=== PATIENT | male | born 1945 | race Caucasian/White ===

== ENCOUNTER 2017-04-05 06:38 | Emergency (ER) | payer BC, MEDICARE ==
[~2017-04-05] VITALS: Ht 175.3 cm; Wt 88.0 kg
[~2017-04-05 06:38] MED LIST: ATEN100T PO; BUPR-73 PO; FLUO40CA8 PO; GEMF600T3 PO; NAPR500T PO
[2017-04-05] MEDS ORDERED: IV NORMAL SALINE 1000 ML BAG IV ONE (07:15)
[2017-04-05] MEDS ORDERED: FAMOTIDINE. 20 MG/2 ML VIAL IV ONE ×2 (07:15→07:36)
[2017-04-05] MEDS ORDERED: ONDANSETRON 4 MG/2 ML VIAL IV ONE (07:15)
[2017-04-05] MEDS ORDERED: MORPHINE SULFATE 2 MG/1 ML DISP.SYRIN IV ONE (07:15)
--- NOTE | 2017-04-05 07:21 | NUR ---
Report given to Rudy Kee RN. Patient stable at time of report.
[2017-04-05 07:32] LABS: BASOPHILS % (AUTO) 0.3 % (0.0-2.0); EOSINOPHILS % (AUTO) 0.3 % (0.0-7.0); HEMATOCRIT 46.6 % (40-50); HEMOGLOBIN 16.2 G/DL (14.0-18.0); LYMPHOCYTES # (AUTO) 1.8 K/UL (0.8-4.8); LYMPHOCYTES % (AUTO) 20.8 % (20.5-51.5); MEAN CORPUSCULAR HEMOGLOBIN 30.4 UUG (27.0-31.0); MEAN CORPUSCULAR HGB CONC 35 g/dL (32.0-37.0); MEAN CORPUSCULAR VOLUME 87.5 FL (82.0-92.0); MONOCYTES # (AUTO) 0.5 K/UL (0.1-1.30); MONOCYTES % (AUTO) 5.3 % (0.0-11.0); NEUTROPHILS # (AUTO) 6.2 K/UL (1.8-8.9); NEUTROPHILS % (AUTO) 73.3 % (38.5-71.5); PLATELET COUNT (AUTO) 209 K/UL (150-450); RED BLOOD CELL COUNT(AUTO) 5.33 MIL/UL (4.7-6.1); WHITE BLOOD COUNT (AUTO) 8.5 K/UL (4.0-11.2)
[2017-04-05] MEDS ORDERED: ONDANSETRON 4 MG/2 ML VIAL ONE (07:37)
[2017-04-05] MEDS ORDERED: MORPHINE SULFATE 4 MG/1 ML DISP.SYRIN ONE (07:37)
--- NOTE | 2017-04-05 07:37 | NUR ---
dr richard evaluated the pt.
[2017-04-05 07:57] LABS: CREATININE 0.9 mg/dL (0.6-1.3); POTASSIUM 3.5 mmol/L (3.5-5.1)
[2017-04-05 08:02] LABS: BILIRUBIN,DIRECT 0.1 mg/dL (0.0-0.2); BILIRUBIN,TOTAL 0.8 mg/dL (0.2-1.0)
[2017-04-05] MEDS ORDERED: METOCLOPRAMIDE HCL 10 MG/2 ML VIAL IV ONE (08:30)
[2017-04-05] MEDS ORDERED: NORMAL SALINE FLUSH 10 ML DISP.SYRIN ONE (08:41)
[2017-04-05] MEDS ORDERED: IOHEXOL 300MG/ML 100 ML INFUS..BTL ONE (08:41)
[2017-04-05] MEDS ORDERED: IV NORMAL SALINE 250 ML IV ONE (08:41)
[2017-04-05] MEDS ORDERED: METOCLOPRAMIDE HCL 10 MG/2 ML VIAL ONE (09:07)
--- NOTE | 2017-04-05 09:32 | NUR ---
PT WAS D/C TO HOME. D/C INSTRUCTIONS GIVEN TO THE PT.
[2017-04-05 09:33] VITALS: BP 128/81
== END 2017-04-05 09:33 | disposition home or self-care (01) ==
LOC: ER 06:40
DX: R10.9 Unspecified abdominal pain (principal); R11.2 Nausea with vomiting, unspecified; R19.7 Diarrhea, unspecified
CPT/HCPCS: 36415; 74177; 80048; 80076; 83690; 85025; 93005; 96361; 96374; 96375; 99285; A4663; J2270; J2405; J2765; J3490 ×2; J7030; J7050; Q9967

== ENCOUNTER 2019-12-26 19:29 | Inpatient (IN) | payer MEDICARE, BC ==
[~2019-12-26] VITALS: Ht 182.9 cm; Wt 88.5 kg
[~2019-12-26 19:29] MED LIST changes: -GEMF600T3 PO; +GEMF600T5 PO; +NAPR-1164 PO; -NAPR500T PO
--- NOTE | 2019-12-26 19:45 | NUR ---
admitted ambulatory from home to er rm-5, c/o abd. pain. seen & evaluated pt w/ orders.
[2019-12-26] MEDS ORDERED: IV NORMAL SALINE 1000 ML BAG IV ONE (20:00)
[2019-12-26] MEDS ORDERED: PANTOPRAZOLE SODIUM 40 MG VIAL IV ONE (20:00)
[2019-12-26] MEDS ORDERED: ONDANSETRON 4 MG/2 ML VIAL IV ONE (20:00)
[2019-12-26] MEDS ORDERED: MORPHINE SULFATE 2 MG/1 ML DISP.SYRIN IV ONE (20:00)
[2019-12-26] MEDS ORDERED: PANTOPRAZOLE SODIUM 40 MG VIAL ONE (20:06)
[2019-12-26 20:07] LABS: BASOPHILS % (AUTO) 0.2 % (0.0-2.0); HEMATOCRIT 42.9 % (36.7-47.1); LYMPHOCYTES # (AUTO) 1.5 K/uL (20.0-40.0); LYMPHOCYTES % (AUTO) 12.9 % (20.5-51.5); MEAN CORPUSCULAR HEMOGLOBIN 30.9 uug (23.8-33.4); MEAN CORPUSCULAR HGB CONC 35 g/dL (32.5-36.3); MEAN CORPUSCULAR VOLUME 88.8 fL (73.0-96.2); MONOCYTES # (AUTO) 0.3 K/uL (2.0-10.0); MONOCYTES % (AUTO) 2.7 % (0.0-11.0); NEUTROPHILS # (AUTO) 9.9 K/uL (1.8-8.9); NEUTROPHILS % (AUTO) 84.2 % (38.5-71.5); PLATELET COUNT (AUTO) 199 K/uL (152-348); RED BLOOD CELL COUNT(AUTO) 4.83 MIL/uL (4.06-5.63); WHITE BLOOD COUNT (AUTO) 11.8 K/uL (3.6-10.2)
[2019-12-26] MEDS ORDERED: MORPHINE SULFATE 2 MG/1 ML DISP.SYRIN ONE ×2 (20:07→21:33)
[2019-12-26] MEDS ORDERED: ONDANSETRON 4 MG/2 ML VIAL ONE ×2 (20:07→20:08)
[2019-12-26 20:21] LABS: CREATININE 1.1 mg/dL (0.6-1.3)
[2019-12-26 20:26] LABS: BILIRUBIN,DIRECT 0.1 mg/dL (0.0-0.2); BILIRUBIN,TOTAL 0.5 mg/dL (0.2-1.0); TOTAL PROTEIN, SERUM 7.3 g/dL (6.4-8.2)
--- NOTE | 2019-12-26 20:29 | NUR ---
pt. to xray for ct scan of abd. & pelvis via wc.
[2019-12-26] MEDS ORDERED: MORPHINE SULFATE 4 MG/1 ML DISP.SYRIN IV ONE (21:15)
--- NOTE | 2019-12-26 21:15 | NUR ---
ekg done as ordered.
[2019-12-26] MEDS ORDERED: ASPIRIN 300 MG RECTAL SUPP RC ONE ×2 (21:30→21:35)
[2019-12-26] MEDS ORDERED: [UNRECOGNIZED DRUG - REMARK] PO (21:34)
[2019-12-26 21:36] LABS: *BILIRUBIN,URIN NEGATIVE (NEGATIVE); *BLOOD, URINE NEGATIVE (NEGATIVE); *CLARITY,URINE CLEAR (CLEAR); *COLOR,URINE YELLOW (YELLOW); *KETONES,URINE NEGATIVE (NEGATIVE); *UROBILINOGEN,URINE 0.2 E.U./dl (NORMAL); LEUKOCYTE ESTERASE ,URINE NEGATIVE (NEGATIVE); NITRITE, URINE NEGATIVE (NEGATIVE); PH,URINE 5.5 (5.0-8.0); UGLUCOSE NEGATIVE (NEGATIVE)
[2019-12-26] MEDS ORDERED: HYDROCODONE/APAP 5-325MG TABLET PO PRN (21:45)
[2019-12-26] MEDS ORDERED: ACETAMINOPHEN 325 MG TABLET PO PRN (21:45)
[2019-12-26] MEDS ORDERED: MAGNESIUM HYDROXIDE 30 ML LIQUID UDC PO PRN (21:45)
[2019-12-26] MEDS ORDERED: ONDANSETRON 4 MG/2 ML VIAL IV PRN (21:45)
[2019-12-26] MEDS ORDERED: Z GUARD REMEDY PASTE 57 GM TUBE TOP PRN (21:45)
[2019-12-26 21:54] LABS: BACTERIA,URINE NONE SEEN /HPF (NONE SEEN); RBC,URINE 0-3 /HPF (0-3); SQUAMOUS EPITHELIAL CELL,UR FEW /HPF (NONE SEEN); WBC,URINE 0-3 /HPF (0-3)
--- NOTE | 2019-12-26 22:30 | NUR ---
dr arambula was here, seen pt.
[2019-12-26 22:59] VITALS: BP 136/94
--- NOTE | 2019-12-26 23:00 | NUR ---
report given to renan staples.
--- NOTE | 2019-12-26 23:10 | NUR ---
pt transfered to [facility] telemetry via wheelchair.
[2019-12-26] MEDS: IV D5 1/2 NS 1000 ML 1,000 ML IV PRN (23:15)
[2019-12-26] MEDS: ZOLPIDEM 5 MG TABLET PO PRN (23:27)
--- NOTE | 2019-12-26 23:30 | NUR ---
Received patient from ER. Dx: NSTEMI, NSR on the monitor. Patient is A/Ox3. No signs of acute distress noted. Vitals WNL. Complains of abdominal pain, but wanted medication for sleeping first. Endorsed to Dr. Quinones and received orders for Ambien, administered with little water. Patient is NPO. Started IVF on the left forearm. Body assessment done. Patient oriented to room and unit. Safety measures initiated. Bed is low and locked, call light within reach. Will continue to monitor.
[2019-12-27] MEDS: MORPHINE SULFATE 2 MG/1 ML DISP.SYRIN IV PRN ×2 (03:20→08:27)
[2019-12-27 04:44] VITALS: BP 130/84
[2019-12-27 06:23] LABS: MAGNESIUM 1.9 mg/dL (1.8-2.4); POTASSIUM 3.9 mmol/L (3.5-5.1)
[2019-12-27 06:30] LABS: EOSINOPHILS % (AUTO) 0.3 % (0.0-7.0); HEMOGLOBIN 13.8 g/dL (12.5-16.3); MONOCYTES # (AUTO) 0.6 K/uL (2.0-10.0); NEUTROPHILS # (AUTO) 5.3 K/uL (1.8-8.9); NEUTROPHILS % (AUTO) 63.2 % (38.5-71.5)
[2019-12-27 06:33] LABS: THYROID STIMULATING HORMONE 1.008 mIU/mL (0.358-3.740)
[2019-12-27 06:49] LABS: BASOPHILS % (AUTO) 0.3 % (0.0-2.0); HEMATOCRIT 39.8 % (36.7-47.1); LYMPHOCYTES # (AUTO) 2.4 K/uL (20.0-40.0); LYMPHOCYTES % (AUTO) 28.9 % (20.5-51.5); MEAN CORPUSCULAR HEMOGLOBIN 31.2 uug (23.8-33.4); MEAN CORPUSCULAR HGB CONC 35 g/dL (32.5-36.3); MEAN CORPUSCULAR VOLUME 89.7 fL (73.0-96.2); MONOCYTES % (AUTO) 7.3 % (0.0-11.0); PLATELET COUNT (AUTO) 182 K/uL (152-348); RED BLOOD CELL COUNT(AUTO) 4.44 MIL/uL (4.06-5.63)
[2019-12-27 06:51] LABS: WHITE BLOOD COUNT (AUTO) 8.4 K/uL (3.6-10.2)
[2019-12-27] MEDS: HEPARIN SODIUM,PORCINE 5,000 UNITS/ML VIAL SQ SCH ×2 (08:29→21:04)
[2019-12-27] MEDS: ASPIRIN EC 81 MG TABLET.DR PO SCH (08:36)
[2019-12-27] MEDS: ATENOLOL 50 MG TABLET PO SCH (08:36)
--- NOTE | 2019-12-27 08:44 | NUR ---
RECEIVED PATIENT, WITH NO SOB NOTED AT THIS TIME AND NO C/O PAIN AT THIS TIME. PATIENT IS NPO . WITH IV ON LEFT FOREARM # 20 GAUGE WITH D5 1/2 NS RUNNING 75 ML/HR. KEPT CLEAN AND DRY AT TALL TIMES. PATIENT IS ALERT AND ORIENTED X3 AND ABLE TO MAKE NEEDS KNOWN. SAFETY AND COMFORT PROVIDED TO THE PATIENT . WILL CONTINUE TO MONITOR.
[2019-12-27] MEDS ORDERED: ALPRAZOLAM 0.5 MG TABLET PO ONE (11:30)
[2019-12-27 11:42] VITALS: BP 128/106
[2019-12-27] MEDS: IV D5 1/2 NS 1000 ML 1,000 ML IV PRN (12:59)
[2019-12-27] MEDS: FLUOXETINE HCL 20 MG CAPSULE PO SCH (13:01)
[2019-12-27 15:30] VITALS: BP 125/59
--- NOTE | 2019-12-27 18:09 | NUR ---
PATIENT, WITH NO SOB NOTED AT THIS TIME AND NO C/O PAIN AT THIS TIME. PATIENT IS BRP. PATIENT IS ON 2GMNA DIET . WITH IV ON LEFT FOREARM # 20 GAUGE WITH D5 1/2 NS RUNNING 75 ML/HR. KEPT CLEAN AND DRY AT TALL TIMES. PATIENT IS ALERT AND ORIENTED X3 AND ABLE TO MAKE NEEDS KNOWN. SAFETY AND COMFORT PROVIDED TO THE PATIENT . WILL CONTINUE TO MONITOR.
--- NOTE | 2019-12-27 18:30 | NUR ---
DR. Mcgregor called and will put for MRI in the AM
--- NOTE | 2019-12-27 19:30 | NUR ---
Received patient resting in bed, easily to arouse. A/Ox3. No signs of acute distress noted. No complaints of pain or SOB. Vitals WNL. Says stomach is feeling better today. Requesting sleeping medication, explained that medication cant be given until 9pm and patient verbalized understanding. 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 Mcgregor is an oncologist on his case and ordered an MRI. Patient is agreeable for MRI and will sign consent. Safety measures initiated Bed is low and locked, call light within reach. Will continue to monitor.
[2019-12-27 20:00] VITALS: BP 151/81
[2019-12-27] MEDS ORDERED: ATORVASTATIN 20 MG TABLET PO SCH (21:00)
[2019-12-27] MEDS: ZOLPIDEM 5 MG TABLET PO PRN (21:03)
[2019-12-28] VITALS: BP 147/61
[2019-12-28] MEDS: IV D5 1/2 NS 1000 ML 1,000 ML IV PRN (01:44)
[2019-12-28] MEDS: MORPHINE SULFATE 2 MG/1 ML DISP.SYRIN IV PRN (03:14)
[2019-12-28 04:00] VITALS: BP 157/70
[2019-12-28 06:11] LABS: BASOPHILS % (AUTO) 0.5 % (0.0-2.0); EOSINOPHILS % (AUTO) 0.3 % (0.0-7.0); HEMATOCRIT 39.6 % (36.7-47.1); HEMOGLOBIN 13.9 g/dL (12.5-16.3); LYMPHOCYTES # (AUTO) 2.3 K/uL (20.0-40.0); LYMPHOCYTES % (AUTO) 31.9 % (20.5-51.5); MEAN CORPUSCULAR HEMOGLOBIN 31.4 uug (23.8-33.4); MEAN CORPUSCULAR HGB CONC 35 g/dL (32.5-36.3); MEAN CORPUSCULAR VOLUME 89.4 fL (73.0-96.2); MONOCYTES # (AUTO) 0.4 K/uL (2.0-10.0); MONOCYTES % (AUTO) 5.9 % (0.0-11.0); NEUTROPHILS # (AUTO) 4.3 K/uL (1.8-8.9); NEUTROPHILS % (AUTO) 61.4 % (38.5-71.5); PLATELET COUNT (AUTO) 167 K/uL (152-348); RED BLOOD CELL COUNT(AUTO) 4.43 MIL/uL (4.06-5.63); WHITE BLOOD COUNT (AUTO) 7.1 K/uL (3.6-10.2)
[2019-12-28 06:13] LABS: CREATININE 0.9 mg/dL (0.6-1.3); MAGNESIUM 1.8 mg/dL (1.8-2.4); PHOSPHOROUS 3.3 mg/dL (2.5-4.9); POTASSIUM 3.4 mmol/L (3.5-5.1)
[2019-12-28] MEDS: POTASSIUM CHLORIDE 50 ML IV SCH ×2 (09:30→09:40)
[2019-12-28] MEDS: ATENOLOL 50 MG TABLET PO SCH (09:41)
[2019-12-28] MEDS: FLUOXETINE HCL 20 MG CAPSULE PO SCH (09:41)
[2019-12-28] MEDS: HEPARIN SODIUM,PORCINE 5,000 UNITS/ML VIAL SQ SCH (10:03)
[2019-12-28] MEDS: ASPIRIN EC 81 MG TABLET.DR PO SCH (10:03)
[2019-12-28] MEDS ORDERED: LORAZEPAM 1 MG TABLET PO ONE (11:15)
[2019-12-28 11:16] VITALS: BP 151/70
--- NOTE | 2019-12-28 11:40 | NUR ---
pt went for mri via ambulances to [facility]
--- NOTE | 2019-12-28 13:44 | NUR ---
pt came back from mri in stable condition
[2019-12-28 15:15] VITALS: BP 135/61
--- NOTE | 2019-12-28 16:14 | NUR ---
took over care from am nurse, pt resting, denies of pain, states going home today, informed that will do discharge papers
--- NOTE | 2019-12-28 17:00 | NUR ---
discharge instructions given- verbalized understanding, iv removed- site without redness/swelling noted, a friend will be picking him up
[2019-12-28] MEDS ORDERED: GADOTERIDOL 279.3 MG/ML, 15 ML VIAL MC ONE (17:34)
--- NOTE | 2019-12-28 17:35 | NUR ---
escorted to car with all belongings under friend's care- pt in stable condition, no distress noted
== END 2019-12-28 17:35 | disposition home or self-care (01) | DRG 391 ==
LOC: ER 19:31 → TELE3 22:18
PROVIDERS: ADMIT Student in an Organized Health Care Education/Training Program; ATTEND Nurse Practitioner Acute Care
DX: A08.4 Viral intestinal infection, unspecified (principal); I21.A1 Myocardial infarction type 2; K86.2 Cyst of pancreas; I42.2 Other hypertrophic cardiomyopathy; E78.5 Hyperlipidemia, unspecified; E86.0 Dehydration; F32.9 Major depressive disorder, single episode, unspecified; F41.9 Anxiety disorder, unspecified; I10 Essential (primary) hypertension; I25.10 Atherosclerotic heart disease of native coronary artery without angina pectoris; K57.30 Diverticulosis of large intestine without perforation or abscess without bleeding
CPT/HCPCS: 36415; 70030-TC; 71045; 83690; 83735; 84100; 84443; 85025; 85730; 86301; 93005; 93307; A4663; A9579; C9113; G0378; J1644; J2270; J2405; J3480; J3490; J7030

== ENCOUNTER 2020-02-05 08:53 | Inpatient (IN) | payer MEDICARE, BC ==
[~2020-02-05] VITALS: Ht 175.3 cm; Wt 86.2 kg
[~2020-02-05 08:53] MED LIST changes: -BUPR-73 PO; -GEMF600T5 PO; -NAPR-1164 PO; +[UNRECOGNIZED DRUG - REMARK] PO
--- NOTE | 2020-02-05 09:18 | NUR ---
pt requesting demerol for pain management.
[2020-02-05] MEDS ORDERED: ONDANSETRON 4 MG/2 ML VIAL ONE (09:29)
[2020-02-05] MEDS ORDERED: HYDROMORPHONE 1 MG/1 ML DISP.SYRIN IV ONE ×2 (09:30→12:15)
[2020-02-05] MEDS ORDERED: ONDANSETRON 4 MG/2 ML VIAL IV ONE (09:30)
[2020-02-05] MEDS ORDERED: IV NORMAL SALINE 1000 ML BAG IV ONE (09:30)
[2020-02-05] MEDS ORDERED: FAMOTIDINE. 20 MG/2 ML VIAL IV ONE ×2 (09:30→09:33)
[2020-02-05] MEDS ORDERED: HYDROMORPHONE 1 MG/1 ML DISP.SYRIN ONE ×2 (09:33→12:17)
[2020-02-05 09:51] LABS: BASOPHILS # (AUTO) 0.1 K/uL (0.0-8.0); BASOPHILS % (AUTO) 0.5 % (0.0-2.0); EOSINOPHILS % (AUTO) 0.1 % (0.0-7.0); HEMOGLOBIN 15.7 g/dL (12.5-16.3); LYMPHOCYTES % (AUTO) 19.6 % (20.5-51.5); MEAN CORPUSCULAR HEMOGLOBIN 31.3 uug (23.8-33.4); MEAN CORPUSCULAR HGB CONC 35 g/dL (32.5-36.3); MEAN CORPUSCULAR VOLUME 89.8 fL (73.0-96.2); MONOCYTES # (AUTO) 0.5 K/uL (2.0-10.0); MONOCYTES % (AUTO) 4.4 % (0.0-11.0); NEUTROPHILS # (AUTO) 7.8 K/uL (1.8-8.9); NEUTROPHILS % (AUTO) 75.4 % (38.5-71.5); PLATELET COUNT (AUTO) 217 K/uL (152-348); RED BLOOD CELL COUNT(AUTO) 5.01 MIL/uL (4.06-5.63); WHITE BLOOD COUNT (AUTO) 10.4 K/uL (3.6-10.2)
[2020-02-05 09:52] LABS: CREATININE 1.1 mg/dL (0.6-1.3); POTASSIUM 3.7 mmol/L (3.5-5.1)
[2020-02-05 09:57] LABS: BILIRUBIN,DIRECT 0.2 mg/dL (0.0-0.2); TOTAL PROTEIN, SERUM 7.5 g/dL (6.4-8.2)
[2020-02-05 10:22] LABS: *BILIRUBIN,URIN NEGATIVE (NEGATIVE); *BLOOD, URINE NEGATIVE (NEGATIVE); *CLARITY,URINE CLEAR (CLEAR); *COLOR,URINE DARK YELLOW (YELLOW); *KETONES,URINE NEGATIVE (NEGATIVE); PH,URINE 6.5 (5.0-8.0); UGLUCOSE NEGATIVE (NEGATIVE)
[2020-02-05 10:23] LABS: *UROBILINOGEN,URINE 0.2 E.U./dl (NORMAL); LEUKOCYTE ESTERASE ,URINE NEGATIVE (NEGATIVE); NITRITE, URINE NEGATIVE (NEGATIVE)
[2020-02-05] MEDS ORDERED: ASPIRIN 81 MG TAB.CHEW PO ONE (10:45)
[2020-02-05] MEDS ORDERED: MIRT15TA7 PO (10:45)
[2020-02-05] MEDS ORDERED: [UNRECOGNIZED DRUG - OTHER] PO (10:45)
[2020-02-05] MEDS ORDERED: ATEN50TA PO (10:45)
[2020-02-05] MEDS ORDERED: ASPIRIN 81 MG TAB.CHEW ONE (10:50)
--- NOTE | 2020-02-05 12:57 | NUR ---
pt transfered to floor in stable condition. pt remained calm, watching tv during the er stay. pain down to tolerable level.
[2020-02-05] MEDS ORDERED: MAGNESIUM HYDROXIDE 30 ML LIQUID UDC PO PRN (13:00)
--- NOTE | 2020-02-05 13:16 | NUR ---
admitted in room 302 a 74 yo male with adm diagnosis of non-stemi, awake alert and oriented x3, patient wanted ativen right away upon admission on the floor. patient per ER nurse was given 1.5 mg. routine admission assessment initiated. md notified of admission
[2020-02-05] MEDS: IV NS 1000 ML 1,000 ML IV PRN ×2 (13:26→23:59)
[2020-02-05 13:44] VITALS: BP 108/52
[2020-02-05] MEDS ORDERED: ALPRAZOLAM 0.5 MG TABLET PO PRN (15:30)
[2020-02-05 15:51] VITALS: BP 120/40
--- NOTE | 2020-02-05 19:00 | NUR ---
PATIENT ALERT ORIENTED, NO SOB NO CHEST PAIN. PATIENT TELE MONITOR SINUS RHYTHM SINUS JOE. PATIENT CONTINENT OF BOWEL AND BLADDER, NO COMPLAIN OF PAIN AT THIS TIME, USES RESTROOM FOR BLADDER ELIMINATIONS.
--- NOTE | 2020-02-05 19:30 | NUR ---
PATIENT REFUSED OXYGEN 3LPM STATED "HE'S FLORENCIO", OXYGEN SAT 98% ROOM AIR, CONT TO MONITOR,
[2020-02-05 20:22] VITALS: BP 136/67
[2020-02-05] MEDS: MIRTAZAPINE 15 MG TABLET PO SCH (20:38)
--- NOTE | 2020-02-05 20:44 | NUR ---
MEDICATIONS TENORMIN HELD HR 59.
[2020-02-05] MEDS ORDERED: ATENOLOL 50 MG TABLET PO SCH (21:00)
[2020-02-06 00:31] VITALS: BP 115/60
[2020-02-06] MEDS: HYDROMORPHONE 1 MG/1 ML DISP.SYRIN IV PRN ×2 (03:55→17:14)
[2020-02-06] MEDS: ONDANSETRON 4 MG/2 ML VIAL IV PRN ×2 (04:53→20:36)
--- NOTE | 2020-02-06 05:09 | NUR ---
PATIENT IV LEFT FA INFILTRATED, REINSERT RIGHT HAND TOLERATE WELL.
--- NOTE | 2020-02-06 05:10 | NUR ---
PATIENT COMPLAIN OF NAUSEA BUT NO VOMITING, GIVEN ZOFRAN ORDERED. CONT TO MONITOR.
[2020-02-06 06:00] VITALS: BP 188/68
[2020-02-06] MEDS: PANTOPRAZOLE SODIUM 40 MG VIAL IV SCH (06:10)
[2020-02-06 06:21] LABS: BASOPHILS % (AUTO) 0.5 % (0.0-2.0); EOSINOPHILS # (AUTO) 0.1 K/uL (0.0-0.7); EOSINOPHILS % (AUTO) 0.6 % (0.0-7.0); HEMOGLOBIN 14.6 g/dL (12.5-16.3); LYMPHOCYTES # (AUTO) 2.6 K/uL (20.0-40.0); LYMPHOCYTES % (AUTO) 25.5 % (20.5-51.5); MEAN CORPUSCULAR HEMOGLOBIN 31.2 uug (23.8-33.4); MEAN CORPUSCULAR HGB CONC 35 g/dL (32.5-36.3); MONOCYTES # (AUTO) 0.6 K/uL (2.0-10.0); MONOCYTES % (AUTO) 5.5 % (0.0-11.0); NEUTROPHILS # (AUTO) 6.9 K/uL (1.8-8.9); NEUTROPHILS % (AUTO) 67.9 % (38.5-71.5); PLATELET COUNT (AUTO) 197 K/uL (152-348); RED BLOOD CELL COUNT(AUTO) 4.67 MIL/uL (4.06-5.63); WHITE BLOOD COUNT (AUTO) 10.1 K/uL (3.6-10.2)
--- NOTE | 2020-02-06 06:37 | NUR ---
PATIENT REQUEST TO HAVE THE PROTONIX MEDICATIONS EARLY BECAUSE HE SAID IT HELPS HIS ABDOMINAL PAIN. INSTRUCTED PATIENT TO STOP DRINKING FOR NOW, AND HE TO REST HIS ABDOMEN AT THIS TIME. CONT TO MONITOR.
[2020-02-06 06:40] LABS: BILIRUBIN,TOTAL 1.2 mg/dL (0.2-1.0); MAGNESIUM 1.8 mg/dL (1.8-2.4); PHOSPHOROUS 3.3 mg/dL (2.5-4.9); POTASSIUM 3.3 mmol/L (3.5-5.1); TOTAL PROTEIN, SERUM 6.5 g/dL (6.4-8.2)
[2020-02-06 07:26] VITALS: BP 195/74
--- NOTE | 2020-02-06 07:27 | NUR ---
PATIENT HAS ELEVATED BP 188/68, 195/74. ALLEY SPINNING FRAME CHANGER AT THE STATION NOTIFY HIM THE ELEVATED BP, STATED FLORENCIO I WILL TAKE CARE OF IT. ALLEY AWARE OF ELEVATED TROPONIN. ENDORSED TO NEXT SHIFT.
[2020-02-06] MEDS ORDERED: POTASSIUM CHLORIDE 20 MEQ TAB.PRT.SR PO ONE (07:30)
[2020-02-06] MEDS ORDERED: CLONIDINE HCL 0.1 MG TABLET PO PRN (08:00)
--- NOTE | 2020-02-06 08:00 | NUR ---
RECEIVED PATIENT IN BED AWAKE ALERT AND ORIENTED WITH IVF ORDERED DENIES PAIN OR DISCOMFORTS AT THIS TIME ON ROOM AIR WITH NO SHORTNESS OF BREATH CALL LIGHTS AND PERSONAL BELONGINGS ARE WITHIN EASY REACH AT THIS TIME WILL CONTINUE TO OBSERVE.
[2020-02-06] MEDS: ALPRAZOLAM 0.5 MG TABLET PO PRN ×2 (08:28→22:01)
--- NOTE | 2020-02-06 08:28 | NUR ---
PATIENT STATED FEEL VERY ANXIOUS MEDICATED WITH XANAX ORDERED MADE COMFORTABLE WILL CONTINUE TO OBSERVE.
[2020-02-06] MEDS ORDERED: POTASSIUM CHLORIDE 20 MEQ POWDER PACKET PO ONE (10:15)
--- NOTE | 2020-02-06 11:00 | NUR ---
IV SITE INFILTERATED REINSERTED TO HIS RIGHT HAND WITH TWO ATTEMPTS CONTINUED ON IVF ORDERED.
[2020-02-06 11:30] VITALS: BP 110/55
[2020-02-06] MEDS: ASPIRIN 81 MG TAB.CHEW PO SCH (12:22)
[2020-02-06] MEDS: METOPROLOL TARTRATE 50 MG TABLET PO SCH ×2 (12:23→20:35)
--- NOTE | 2020-02-06 13:00 | NUR ---
POTASSIUM LEVEL IS 3.3 REPLACED ORDERED.
[2020-02-06] MEDS: IV NS 1000 ML 1,000 ML IV PRN (15:05)
[2020-02-06 16:00] VITALS: BP 116/54
--- NOTE | 2020-02-06 17:14 | NUR ---
PATIENT C/O HAVING ABDOMINAL PAIN MEDICATED WITH DILAUDID ORDERED MADE COMFORTABLE WILL CONTINUE TO OBSERVE.
--- NOTE | 2020-02-06 19:30 | NUR ---
RECEIVED PT AWAKE , ALERT AND ORIENTEDX4. PT IN NO ACUTE DISTRESS. IV INTACT. SAFETY AND COMFORT PROVIDED. WILL CONTINUE TO MONITOR.
[2020-02-06] MEDS: MIRTAZAPINE 15 MG TABLET PO SCH (20:36)
[2020-02-06 20:37] VITALS: BP 115/67
--- NOTE | 2020-02-06 23:30 | NUR ---
PT GIVEN ZOFRAN PRN FOR NAUSEA AT 2036H. PT TOLERATED IT WELL. PT GIVEN XANAX AT 2201H PRESCRIBED PER PT REQUEST. HE STATED IT WILL MAKE HIM SLEEP. PT TOLERATED IT WELL. OBSERVED THAT PT SLEEPING AFTER AN HOUR. WILL CONTINUE TO MONITOR.
[2020-02-07] VITALS: BP 122/54
[2020-02-07] MEDS: IV NS 1000 ML 1,000 ML IV PRN (01:06)
[2020-02-07 04:00] VITALS: BP 125/68
[2020-02-07 05:56] LABS: BASOPHILS # (AUTO) 0.1 K/uL (0.0-8.0); BASOPHILS % (AUTO) 0.7 % (0.0-2.0); EOSINOPHILS # (AUTO) 0.1 K/uL (0.0-0.7); EOSINOPHILS % (AUTO) 1.1 % (0.0-7.0); HEMATOCRIT 43.4 % (36.7-47.1); HEMOGLOBIN 15.1 g/dL (12.5-16.3); LYMPHOCYTES # (AUTO) 3.5 K/uL (20.0-40.0); LYMPHOCYTES % (AUTO) 31.6 % (20.5-51.5); MEAN CORPUSCULAR HEMOGLOBIN 31.2 uug (23.8-33.4); MEAN CORPUSCULAR HGB CONC 35 g/dL (32.5-36.3); MEAN CORPUSCULAR VOLUME 89.6 fL (73.0-96.2); MONOCYTES # (AUTO) 0.7 K/uL (2.0-10.0); MONOCYTES % (AUTO) 6.7 % (0.0-11.0); NEUTROPHILS # (AUTO) 6.7 K/uL (1.8-8.9); NEUTROPHILS % (AUTO) 59.9 % (38.5-71.5); PLATELET COUNT (AUTO) 206 K/uL (152-348); RED BLOOD CELL COUNT(AUTO) 4.84 MIL/uL (4.06-5.63); WHITE BLOOD COUNT (AUTO) 11.1 K/uL (3.6-10.2)
[2020-02-07 06:02] LABS: CREATININE 1.1 mg/dL (0.6-1.3); POTASSIUM 3.8 mmol/L (3.5-5.1)
--- NOTE | 2020-02-07 06:11 | NUR ---
PT SLEPT COMFORTABLY. PT IN NO ACUTE DISTRESS. PRESCRIBED MEDICATION GIVEN AND PT TOLERATED IT WELL. PAIN MEDICATION GIVEN FOR 7/10 PAIN SCALE. PT TOLERATED IT WELL. SAFETY AND COMFORT PROVIDED. ALL NEEDS ARE MET. WILL ENDORSE TO INCOMING NURSE FOR CONTINUITY OF CARE.
[2020-02-07] MEDS: HYDROMORPHONE 1 MG/1 ML DISP.SYRIN IV PRN (06:23)
--- NOTE | 2020-02-07 08:00 | NUR ---
RECEIVED PATIENT IN BED AWAKE AND ALERT WITH NO SIGNS AND SYMPTOMS OF RESPIRATORY DISTRESS. NO COMPLAINT OF PAIN WILL ASSESS AGAIN LATER. PATIENT ON ROOM AIR AND IS SATURATING WELL. WILL CONTINUE TO OBSERVE AND MONITOR
[2020-02-07] MEDS: PANTOPRAZOLE SODIUM 40 MG VIAL IV SCH (08:21)
[2020-02-07] MEDS: METOPROLOL TARTRATE 50 MG TABLET PO SCH (08:25)
[2020-02-07] MEDS: ASPIRIN 81 MG TAB.CHEW PO SCH (08:26)
--- NOTE | 2020-02-07 11:04 | NUR ---
PATIENT SEEN AND EXAMINED BY DR ROSANNA WHITE STATED THAT HE IS PLANNING TO DISCHARGE PATIENT HOME TODAY AND NOTED AWAITING FOR ORDERS.
[2020-02-07] MEDS ORDERED: ASPI81TA31 PO (11:37)
[2020-02-07 12:00] VITALS: BP 127/79
--- NOTE | 2020-02-07 12:20 | NUR ---
BLOOD PRESSURE AT THIS TIME IS 167/[address] ROSANNA WHITE NOTIFIED STATED OKAY TO DISCHARGE PATIENT HOME TODAY NO NEW ORDERS AT THIS TIME PATIENT IS ASSYMPTOMATIC EATING HIS LUNCH AND EXCITED TO BE GOINH HOME.
[2020-02-07] MEDS ORDERED: METO50TA16 PO (12:27)
--- NOTE | 2020-02-07 12:53 | NUR ---
DISCHARGE INSTRUCTIONS AND MEDICAL CD GIVEN TO PATIENT. PATIENT WAS INSTRUCTED TO CALL FOR FOLLOWUP APPT WITH DOCTOR MANZANO THIS WEEK PHONE NUMBER PROVIDED. ALSO PATIENT WAS INSTRUCTED TO FOLLOW UP WITH HIS PRIMARY DOCTOR AND TYPEWRITER MECHANIC FOR OUTPATIENT STRESS TEST. ALSO TO RETURN TO THE CLOSEST EMERGENCY ROOM FOR CHEST PAIN, ABDOMINAL PAIN OR WORSENING OF HIS CONDITION. PATIENT EXPRESSED UNDERSTANDING. PATIENT IS CURRENTLY AWAITING FOR HIS SON ISAAC TO PICK HIM UP.
--- NOTE | 2020-02-07 14:00 | NUR ---
PATIENTS SON ISAAC HERE AND PATIENT ESCORTED DOWN WITH ALL OF HIS PERSONAL BELONGINGS DISCHARGED IN SATISFACTORY CONDITION.
[2020-02-08] MEDS ORDERED: PANTOPRAZOLE SODIUM 40 MG TABLET.DR PO SCH (07:00)
== END 2020-02-07 14:00 | disposition home or self-care (01) | DRG 438 ==
LOC: ER 08:53 → TELE3 12:31 → MEDSURG3 02-07 08:35
PROVIDERS: ADMIT Nurse Practitioner Acute Care; ATTEND Hospitalist
DX: K85.90 Acute pancreatitis without necrosis or infection, unspecified (principal); I21.4 Non-ST elevation (NSTEMI) myocardial infarction; I42.2 Other hypertrophic cardiomyopathy; K86.2 Cyst of pancreas; F32.9 Major depressive disorder, single episode, unspecified; F41.9 Anxiety disorder, unspecified; G89.29 Other chronic pain; I10 Essential (primary) hypertension; Z85.46 Personal history of malignant neoplasm of prostate; R73.9 Hyperglycemia, unspecified; D72.829 Elevated white blood cell count, unspecified; Z79.891 Long term (current) use of opiate analgesic; R01.1 Cardiac murmur, unspecified; E78.5 Hyperlipidemia, unspecified; N20.0 Calculus of kidney
CPT/HCPCS: 36415; 70030-TC; 71046; 83690; 83735; 84100; 85025; 93005; A4663; C9113; G0378; J1170; J2405; J3490; J7030

== ENCOUNTER 2022-02-01 15:10 | Inpatient (IN) | payer MEDICARE, BC ==
[~2022-02-01] VITALS: Ht 175.3 cm; Wt 74.8 kg
[~2022-02-01 15:10] MED LIST changes: +ASPI81TA31 PO; -ATEN100T PO; -FLUO40CA8 PO; +METO50TA16 PO; +MIRT-93 PO; -[UNRECOGNIZED DRUG - REMARK] PO
[2022-02-01] MEDS ORDERED: FLUO20CA42 PO (15:30)
[2022-02-01] MEDS ORDERED: DIAZ10TA4 PO (15:30)
[2022-02-01] MEDS ORDERED: TELM40TA8 PO (15:30)
[2022-02-01] MEDS ORDERED: ATOR80TA PO (15:30)
[2022-02-01] MEDS ORDERED: KETOROLAC TROMETHAMINE 15 MG INJ IVP ONE (15:45)
[2022-02-01] MEDS ORDERED: METOCLOPRAMIDE HCL 10 MG/2 ML VIAL IV ONE (15:45)
[2022-02-01] MEDS ORDERED: IV NORMAL SALINE 1000 ML BAG IV ONE (15:45)
[2022-02-01] MEDS ORDERED: KETOROLAC TROMETHAMINE 15 MG INJ ONE (15:56)
[2022-02-01] MEDS ORDERED: METOCLOPRAMIDE HCL 10 MG/2 ML VIAL ONE (15:56)
[2022-02-01 16:13] LABS: HEMATOCRIT 42.6 % (36.7-47.1); MEAN CORPUSCULAR HEMOGLOBIN 29.5 uug (23.8-33.4); MEAN CORPUSCULAR VOLUME 85.6 fL (73.0-96.2); PLATELET COUNT (AUTO) 243 K/uL (152-348)
[2022-02-01 16:16] LABS: CARBON DIOXIDE 23 mmol/L (21-32); CHLORIDE 100 mmol/L (98-107); CREATININE 0.8 mg/dL (0.6-1.3); GLUCOSE 164 mg/dL (74-106); POTASSIUM 3.4 mmol/L (3.5-5.1); UREA NITROGEN, BLOOD 10 mg/dL (7-18)
[2022-02-01 16:24] LABS: ALANINE AMINOTRANSFERASE 11 U/L (16-63); ALKALINE PHOSPHATASE 87 U/L (50-136); ASPARTATE AMINOTRANSFERASE 9 U/L (15-37); BILIRUBIN,DIRECT 0.1 mg/dL (0.0-0.2); BILIRUBIN,TOTAL 0.8 mg/dL (0.2-1.0); LIPASE 91 U/L (73-393); TOTAL PROTEIN, SERUM 6.7 g/dL (6.4-8.2)
--- NOTE | 2022-02-01 17:17 | NUR ---
Spoke with Leobardo, pt will be in 317 telemetry.
--- NOTE | 2022-02-01 17:35 | NUR ---
SON: Gaurav [phone]
--- NOTE | 2022-02-01 17:40 | NUR ---
Dr. Tai [facility].
[2022-02-01] MEDS ORDERED: NITROGLYCERIN OINT 1 GM PACKET TP ONE ×2 (18:36→18:45)
[2022-02-01] MEDS ORDERED: ASPIRIN 81 MG TAB.CHEW ONE (18:36)
[2022-02-01] MEDS ORDERED: ASPIRIN 81 MG TAB.CHEW PO ONE (18:45)
[2022-02-01] MEDS ORDERED: PIPERACILLIN SODIUM/TAZOBACTAM 3.375 G in IV DEXTROSE 5% 50 ML IV ONE (18:45)
[2022-02-01] MEDS ORDERED: PIPERACILLIN/TAZOBACTAM/D5W 50 ML IV ONE (18:49)
[2022-02-01] MEDS ORDERED: HYDROMORPHONE 1 MG/1 ML DISP.SYRIN IV ONE (19:30)
[2022-02-01] MEDS ORDERED: HYDROMORPHONE 1 MG/1 ML DISP.SYRIN ONE (19:32)
--- NOTE | 2022-02-01 19:50 | NUR ---
spoke with Joanne LOZANO report given. Pt will go to room 317.
--- NOTE | 2022-02-01 20:13 | NUR ---
Admitted 76 y/o male to tele at 2012. Awake and alert x3. Able to make needs known. NKA. 99% on room air. SR on tele. Ambulatory with cane and minimal assistance. Admitted for NSTEMI. Complaint of abdominal pain and swelling. Abdomen noted with distension. Last bowel movement 02/[address] of abdomen showed possible diverticulosis. Zosyn given IV on right AC. Skin intact. Son Kartik at bedside. Doctor aware of elevated troponin level.
--- NOTE | 2022-02-01 20:19 | NUR ---
pt transported to room [facility] via [facility] with all belongings. Pt's son accompained the pt to his room. BLAKE Rubio in room to accept the pt. Pt walked with steady gait from [facility] to his room of 317 he did use his cane.
[2022-02-01 20:26] VITALS: BP 132/61
[2022-02-01] MEDS ORDERED: MAGNESIUM HYDROXIDE 30 ML LIQUID UDC PO PRN (21:15)
[2022-02-01] MEDS ORDERED: REMEDY ESSENTIAL ZINC PASTE 113 GM TP PRN (21:15)
[2022-02-01] MEDS ORDERED: ACETAMINOPHEN 325 MG TABLET PO PRN (21:15)
[2022-02-01] MEDS ORDERED: PIPERACILLIN SODIUM/TAZOBACTAM 4.5 G in IV DEXTROSE 5% 50 ML IV SCH (22:00)
[2022-02-02 00:18] VITALS: BP 128/67
[2022-02-02] MEDS ORDERED: PIPERACILLIN/TAZO 4.5 GM VIAL IV ONE (00:19)
[2022-02-02] MEDS: PIPERACILLIN SODIUM/TAZOBACTAM 4.5 G in IV DEXTROSE 5% 50 ML IV SCH ×2 (00:38→05:17)
[2022-02-02 04:15] VITALS: BP 119/49
[2022-02-02] MEDS: ONDANSETRON 4 MG/2 ML VIAL IV PRN (05:16)
[2022-02-02] MEDS: PANTOPRAZOLE SODIUM 40 MG TABLET.DR PO SCH (06:07)
[2022-02-02] MEDS: HYDROCODONE/APAP 5-325MG TABLET PO PRN (06:07)
[2022-02-02 07:01] LABS: HEMATOCRIT 38.5 % (36.7-47.1); MEAN CORPUSCULAR HEMOGLOBIN 29.7 uug (23.8-33.4); MEAN CORPUSCULAR VOLUME 85.6 fL (73.0-96.2); PLATELET COUNT (AUTO) 192 K/uL (152-348)
[2022-02-02 07:25] LABS: CREATININE 0.7 mg/dL (0.6-1.3); MAGNESIUM 1.9 mg/dL (1.8-2.4); PHOSPHOROUS 3.2 mg/dL (2.5-4.9); POTASSIUM 3.2 mmol/L (3.5-5.1)
[2022-02-02 07:29] LABS: THYROID STIMULATING HORMONE 1.166 mIU/mL (0.358-3.740)
[2022-02-02 08:46] VITALS: BP 125/54
[2022-02-02] MEDS: ASPIRIN 81 MG TAB.CHEW PO SCH (08:50)
[2022-02-02] MEDS: FLUOXETINE HCL 20 MG CAPSULE PO SCH (08:51)
[2022-02-02] MEDS: METOPROLOL TARTRATE 50 MG TABLET PO SCH ×2 (08:51→22:09)
[2022-02-02] MEDS: LOSARTAN POTASSIUM 50 MG TABLET PO SCH (08:51)
[2022-02-02] MEDS: MORPHINE SULFATE 2 MG/1 ML DISP.SYRIN IV PRN ×4 (09:05→22:08)
[2022-02-02] MEDS ORDERED: POTASSIUM CHLORIDE 20 MEQ TAB.PRT.SR PO ONE (09:15)
--- NOTE | 2022-02-02 12:00 | NUR ---
Per ultrasound, patient does not have sufficient fluid for paracentesis. made aware.
[2022-02-02] MEDS: PIPERACILLIN SODIUM/TAZOBACTAM 3.375 G in IV DEXTROSE 5% 100 ML IV SCH ×2 (14:39→22:08)
[2022-02-02 16:26] VITALS: BP 116/62
--- NOTE | 2022-02-02 18:40 | NUR ---
patient is AAOx Addendum: 02/02/22 at 1843 by JOSE PAL RN Patient is alert and oriented x4, with episodes of forgetfulness. Denies any chest pain, no SOB noted. Still continues to c/o pain to ABD, ABD is distended, slightly soft, non tender. No nausea or diarrhea this shift. Morphine provided as requested for severe pain. All needs attended, update on health status provided to Kartik rea. Call light within reach.
[2022-02-02 20:49] VITALS: BP 119/57
[2022-02-02] MEDS: ATORVASTATIN 40 MG TABLET PO SCH (22:09)
[2022-02-03] MEDS: HYDROCODONE/APAP 5-325MG TABLET PO PRN ×2 (00:07→17:55)
[2022-02-03 00:47] VITALS: BP 141/57
[2022-02-03 04:52] VITALS: BP 139/48
[2022-02-03] MEDS: PIPERACILLIN SODIUM/TAZOBACTAM 3.375 G in IV DEXTROSE 5% 100 ML IV SCH ×3 (05:56→21:10)
[2022-02-03] MEDS: ONDANSETRON 4 MG/2 ML VIAL IV PRN ×2 (05:56→15:27)
[2022-02-03] MEDS: PANTOPRAZOLE SODIUM 40 MG TABLET.DR PO SCH (05:57)
[2022-02-03] MEDS: MORPHINE SULFATE 2 MG/1 ML DISP.SYRIN IV PRN ×3 (05:57→21:20)
[2022-02-03 06:32] LABS: CREATININE 0.8 mg/dL (0.6-1.3); POTASSIUM 3.9 mmol/L (3.5-5.1)
--- NOTE | 2022-02-03 06:53 | NUR ---
Pt received several doses of pain medications (morphine x2 & hydrocodone x1) and antinausea medication (zofran x 2) throughtout hotel night auditor. Otherwise night was uneventful. Pt maintained normal sinus rhythm on tele monitor.
[2022-02-03] MEDS: FLUOXETINE HCL 20 MG CAPSULE PO SCH (08:59)
[2022-02-03] MEDS: ASPIRIN 81 MG TAB.CHEW PO SCH (08:59)
[2022-02-03] MEDS: METOPROLOL TARTRATE 50 MG TABLET PO SCH ×2 (09:00→21:10)
[2022-02-03] MEDS: LOSARTAN POTASSIUM 50 MG TABLET PO SCH (09:00)
--- NOTE | 2022-02-03 09:30 | NUR ---
AWAKE ALERT AND ORIENTED PATIENT SEEN BY DR DON AND HE STATED THAT PATIENT IS NOT READY FOR DISCHARGE WILL NEED TO BE SEEN BY THE PHOTOGRAPHER APPRENTICE LITHOGRAPHIC TODAY TO REEVALUATE HIS ELEVATED TROPONIN PATIENT AWARE.REMAIN ON ATB ORDERED WITH NO ADVERSE OR ALLERGIC REACTIONS AT THIS TIME TELE IS SR WITH NO ECTOPY.CALL LIGHTS AND HIS PERSONAL BELONGINGS ARE WITHIN EASY REACH AT THIS TIME WILL CONTINUE TO OBSERVE.
[2022-02-03 12:00] VITALS: BP_SYST 110; BP_DIAS 15; BP_DIAS 45
--- NOTE | 2022-02-03 12:03 | NUR ---
C/O ABDOMINAL PAIN MEDICATED WITH MORPHINE ORDERED MADE COMFORTABLE WILL OBSERVE.
--- NOTE | 2022-02-03 15:27 | NUR ---
PATIENT STATED FEELING NAUSEOUS MEDICATED WITH ZOFRAN ORDERED MADE COMFORTABLE AND WILL CONTINUE TO OBSERVE
[2022-02-03 15:40] VITALS: BP 131/48
--- NOTE | 2022-02-03 17:55 | NUR ---
MEDICATED WITH NORCO FOR PAIN PER HIS REQUEST WILL OBSERVE.
--- NOTE | 2022-02-03 19:30 | NUR ---
Received patient lying in bed. AAOx4. In no acute distress. Denies any pain or SOB at this time. NSR on tele with HR of 72/hr. IV site on right FA intact and patent. Needs assessed and attended to. Safety measure initiated and call light within reached.
[2022-02-03 20:12] VITALS: BP 115/46
[2022-02-03] MEDS: ATORVASTATIN 40 MG TABLET PO SCH (21:10)
--- NOTE | 2022-02-03 23:35 | NUR ---
Telephone call from [facility] and reported that patient is + for COVID. Both charge nurse Gary and Automotive Diagnostic Technician Jesse made aware. Jesse to inform OR Team. Patient transferred to COVID room 322.
[2022-02-04] VITALS: BP 120/55
[2022-02-04] MEDS: MORPHINE SULFATE 2 MG/1 ML DISP.SYRIN IV PRN (04:03)
[2022-02-04 04:15] VITALS: BP_SYST 109; BP_SYST 115; BP_DIAS 72; BP_DIAS 73
[2022-02-04] MEDS: PIPERACILLIN SODIUM/TAZOBACTAM 3.375 G in IV DEXTROSE 5% 100 ML IV SCH ×2 (05:18→15:22)
--- NOTE | 2022-02-04 05:53 | NUR ---
In no acute distress. morphine 2mg via IV given for complain of abdominal pain and effective. NSR on tele with PAC's and PVC's with HR of 76/hr. IV site on right FA intact and patent. No adverse effect noted from IV antibiotic. Needs assessed and attended to. Safety measure maintained and call light within reached.
[2022-02-04] MEDS: PANTOPRAZOLE SODIUM 40 MG TABLET.DR PO SCH (06:01)
[2022-02-04] MEDS: FLUOXETINE HCL 20 MG CAPSULE PO SCH (08:17)
[2022-02-04] MEDS: METOPROLOL TARTRATE 50 MG TABLET PO SCH (08:23)
[2022-02-04] MEDS: ASPIRIN 81 MG TAB.CHEW PO SCH (08:23)
[2022-02-04] MEDS: LOSARTAN POTASSIUM 50 MG TABLET PO SCH (08:24)
[2022-02-04] MEDS ORDERED: CIPR-262 PO (11:01)
[2022-02-04 11:12] VITALS: BP 116/46
[2022-02-04] MEDS: HYDROCODONE/APAP 5-325MG TABLET PO PRN (15:24)
[2022-02-04 15:35] VITALS: BP 122/55
--- NOTE | 2022-02-04 16:12 | NUR ---
Discharge instructions given to pt. Pt verbalized understanding. 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 PT is to follow up with primary doctor within 1 week and instructed to bring all his d/c papers including discharge summary to show his PMD. Pt verbalized understanding. No sob noted upon discharge. IV taken out. Pt is in no acute distress.
== END 2022-02-04 16:04 | disposition home or self-care (01) | DRG 391 ==
LOC: ER 15:12 → TELE3 19:54
PROVIDERS: ATTEND Nurse Practitioner Acute Care
DX: K57.32 Diverticulitis of large intestine without perforation or abscess without bleeding (principal); I21.A1 Myocardial infarction type 2; I42.1 Obstructive hypertrophic cardiomyopathy; K86.2 Cyst of pancreas; R18.8 Other ascites; K76.6 Portal hypertension; E86.0 Dehydration; Z85.46 Personal history of malignant neoplasm of prostate; Z87.442 Personal history of urinary calculi; Z90.49 Acquired absence of other specified parts of digestive tract; Z95.2 Presence of prosthetic heart valve; M54.30 Sciatica, unspecified side; N20.0 Calculus of kidney; E87.6 Hypokalemia; E78.5 Hyperlipidemia, unspecified; I10 Essential (primary) hypertension; F41.9 Anxiety disorder, unspecified; I71.2 Thoracic aortic aneurysm, without rupture; Z20.822 Contact with and (suspected) exposure to COVID-19; I25.2 Old myocardial infarction; F32.A Depression, unspecified
CPT/HCPCS: 36415; 71045; 71250; 76705; 83690; 83735; 84100; 84443; 84484; 85025; 85730; 86850; 86900; 86901; 93005; 97161; G0378; J1170; J1885; J2270; J2405; J2543; J2765; J7040

== ENCOUNTER 2022-02-13 16:05 | Inpatient (IN) | payer MEDICARE, BC ==
[~2022-02-13] VITALS: Ht 175.3 cm; Wt 72.1 kg
[~2022-02-13 16:05] MED LIST changes: +ATOR80TA PO; +CIPR-262 PO; +DIAZ10TA4 PO; +FLUO20CA42 PO; -MIRT-93 PO; +TELM40TA8 PO
--- NOTE | 2022-02-13 16:50 | NUR ---
Pt brought back to room 2B by diabetes manager via waiting room accompanied by son due to acsities of idiopathic origin. Pt connected to bedside monitor and initial vs obtained. VSS. initial BP 128/69, 75bpm, 93%RA, 16rpm, pt complaining of moderate to severe pain in Rt flank area toward back.
--- NOTE | 2022-02-13 17:00 | NUR ---
Pt taken to CT by bert via alvaro.
[2022-02-13 17:19] LABS: HEMATOCRIT 44.1 % (36.7-47.1); MEAN CORPUSCULAR HEMOGLOBIN 28.8 uug (23.8-33.4); MEAN CORPUSCULAR VOLUME 87.4 fL (73.0-96.2); PLATELET COUNT (AUTO) 323 K/uL (152-348)
[2022-02-13] MEDS ORDERED: MORPHINE SULFATE 2 MG/1 ML DISP.SYRIN IV ONE (17:30)
[2022-02-13] MEDS ORDERED: ONDANSETRON 4 MG/2 ML VIAL IV ONE (17:30)
--- NOTE | 2022-02-13 17:30 | NUR ---
Pt experiencing some mild nausea, with scant emesis. pt given barf bag and zofran 4mg IVP ordered.
[2022-02-13 17:38] LABS: ALANINE AMINOTRANSFERASE 15 U/L (16-63); ALKALINE PHOSPHATASE 73 U/L (50-136); ASPARTATE AMINOTRANSFERASE 17 U/L (15-37); BILIRUBIN,DIRECT 0.2 mg/dL (0.0-0.2); BILIRUBIN,TOTAL 0.6 mg/dL (0.2-1.0); CARBON DIOXIDE 24 mmol/L (21-32); CHLORIDE 98 mmol/L (98-107); CREATININE 2.3 mg/dL (0.6-1.3); GLUCOSE 198 mg/dL (74-106); LIPASE 94 U/L (73-393); UREA NITROGEN, BLOOD 40 mg/dL (7-18)
[2022-02-13] MEDS ORDERED: DEXTROSE 50% 50 ML DISP.SYRIN IV ONE (18:00)
[2022-02-13] MEDS ORDERED: SODIUM POLYSTYRENE SULFONATE 15 G/60 ML LIQUID UDC PO ONE (18:00)
[2022-02-13] MEDS ORDERED: SODIUM BICARBONATE 8.4% 100 MEQ in IV D5W 1000ML 1,000 ML IV ONE (18:00)
[2022-02-13] MEDS ORDERED: SODIUM BICARBONATE 8.4% 50 MEQ/50 ML DISP.SYRIN IV ONE ×2 (18:00→18:51)
[2022-02-13] MEDS ORDERED: MORPHINE SULFATE 4 MG/1 ML DISP.SYRIN ONE (18:07)
[2022-02-13] MEDS ORDERED: ONDANSETRON 4 MG/2 ML VIAL ONE (18:07)
[2022-02-13] MEDS ORDERED: CALCIUM CHLORIDE 1 GM/10 ML DISP.SYRIN IVP ONE (18:15)
[2022-02-13] MEDS ORDERED: INSULIN REGULAR, HUMAN 300 UNIT/3 ML VIAL IV ONE (18:15)
[2022-02-13] MEDS ORDERED: CALCIUM GLUCONATE IV 1 GM in IV NORMAL SALINE 100 ML IV ONE ×4 (18:30)
--- NOTE | 2022-02-13 18:30 | NUR ---
EKG done and shown to EDMD.
[2022-02-13] MEDS ORDERED: PIPERACILLIN SODIUM/TAZOBACTAM 3.375 G in IV DEXTROSE 5% 50 ML IV ONE (18:45)
--- NOTE | 2022-02-13 18:45 | NUR ---
Iv inserted into Rt AC without difficulty, meds given, pt tolerated well. MS 4mg and zofran 4mg IVP given immediately. Pt tolerated well. Pt states that pain meds were effective.
[2022-02-13] MEDS ORDERED: DEXTROSE 50% 50 ML DISP.SYRIN ONE (18:50)
[2022-02-13] MEDS ORDERED: SODIUM POLYSTYRENE SULFONATE 15 G/60 ML LIQUID UDC ONE ×2 (18:51→18:52)
[2022-02-13] MEDS ORDERED: INSULIN LISPRO 300 UNIT/3 ML VIAL SQ ONE (18:53)
[2022-02-13] MEDS ORDERED: CALCIUM GLUCONATE 1 GM/10 ML VIAL IV ONE (18:55)
[2022-02-13] MEDS ORDERED: PIPERACILLIN/TAZOBACTAM/D5W 100 ML IV ONE (18:56)
--- NOTE | 2022-02-13 19:10 | NUR ---
All meds given to pt including 10 units of regular insulin. accucheck at 284 after 10 units of humulin R. BG reported to charge and pt's nurse.
[2022-02-13] MEDS ORDERED: INSULIN REGULAR, HUMAN 300 UNIT/3 ML VIAL ONE (20:12)
[2022-02-13] MEDS ORDERED: levoFLOXacin 500 MG/D5W 500 MG in PREMIXED 1 EACH IV ONE (20:30)
[2022-02-13] MEDS ORDERED: ACETAMINOPHEN 325 MG TABLET PO PRN (20:30)
[2022-02-13] MEDS ORDERED: REMEDY ESSENTIAL ZINC PASTE 113 GM TP PRN (20:30)
--- NOTE | 2022-02-13 20:30 | NUR ---
Report given to Staff PMRN using sbar method. Pt stable, VSS, PE WNL, NAD, Pt aaox3, PERRLA. No s/sxof distress present.
--- NOTE | 2022-02-13 21:10 | NUR ---
Pt complaining of mod to severe pain in Rt flank region, is asking for more pain meds. Pt is asking for demerol specifically.
[2022-02-13] MEDS ORDERED: HYDROMORPHONE 1 MG/1 ML DISP.SYRIN IV ONE (21:45)
[2022-02-13] MEDS ORDERED: HYDROMORPHONE 1 MG/1 ML DISP.SYRIN ONE (21:47)
[2022-02-13] MEDS ORDERED: METRONIDAZOLE 500 MG/NS 100ML 500 MG in PREMIXED 1 EACH IV SCH (22:00)
--- NOTE | 2022-02-13 22:40 | NUR ---
report given to Valerie LOZANO. Patient will go to room 307
--- NOTE | 2022-02-13 23:23 | NUR ---
Pt. admitted to TELE room 307 , under care of Dr. Mccoy Belongs List completed Valerie RN aware of patient's arrival
--- NOTE | 2022-02-13 23:25 | NUR ---
RECEIVED PATIENT VIA GURNEY FROM ER. PATIENT IS A/O X2-3, FORGETFUL AT TIMES, NEEDS REINFORCEMENT. DENIES ANY PAIN OR DISCOMFORT UPON ADMISSION TO FLOOR. NO RESP. DISTRESS NOTED. HEPLOCK INTACT AND PATENT, NOTED TO RIGHT AC #20 GAUGE. PLACED ON TELE ORDERED, SR. ORIENTED PATIENT TO ROOM AND CALL LIGHT. CALL LIGHT IN REACH. ALL NEEDS ATTENDED. WILL CONTINUE TO MONITOR AND ASSESS.
[2022-02-14] MEDS: IV D5 1/2 NS 1000 ML 1,000 ML IV PRN ×2 (00:09→22:00)
[2022-02-14] MEDS ORDERED: METRONIDAZOLE 500 MG/NS 100ML 100 ML IV ONE (00:14)
[2022-02-14] MEDS ORDERED: levoFLOXacin 250MG /D5W 50 ML IV ONE (00:15)
[2022-02-14 00:29] VITALS: BP 145/64
[2022-02-14] MEDS ORDERED: IV NORMAL SALINE 500 ML IV ONE (00:30)
[2022-02-14] MEDS ORDERED: levoFLOXacin 500 MG/D5W 100 ML ONE (00:39)
[2022-02-14] MEDS: ATORVASTATIN 40 MG TABLET PO SCH ×2 (00:49→21:04)
[2022-02-14] MEDS: METOPROLOL TARTRATE 50 MG TABLET PO SCH ×3 (00:49→21:04)
--- NOTE | 2022-02-14 01:00 | NUR ---
RECEIVED CALL FROM LAB FOR CRITICAL LAB VALUE. LACTIC ACID 2.8. CALLED OUT TO DR. CARBALLO FOR FURTHER ORDERS. PATIENT GIVEN NS BOLUS 500ML X1. WILL CONTINUE TO MONITOR AND ASSESS.
[2022-02-14 04:00] VITALS: BP 119/61
--- NOTE | 2022-02-14 06:00 | NUR ---
PATIENT AWAKE IN BED. BLADDER SCANNED AND RECEIVED RETENTION OF 979cc. RECEIVED ORDER FOR INSERTION OF YUSUF CATHETER. ON TELE SR. VS WNL. CALL LIGHT IN REACH. ALL NEEDS ATTENDED.
[2022-02-14 06:37] LABS: MEAN CORPUSCULAR HEMOGLOBIN 28.6 uug (23.8-33.4); PLATELET COUNT (AUTO) 310 K/uL (152-348)
[2022-02-14 06:52] LABS: ALANINE AMINOTRANSFERASE 11 U/L (16-63); ALKALINE PHOSPHATASE 64 U/L (50-136); ASPARTATE AMINOTRANSFERASE 12 U/L (15-37); BILIRUBIN,TOTAL 0.5 mg/dL (0.2-1.0); CARBON DIOXIDE 25 mmol/L (21-32); CHLORIDE 103 mmol/L (98-107); CREATININE 1.9 mg/dL (0.6-1.3); GLUCOSE 134 mg/dL (74-106); PHOSPHOROUS 4.3 mg/dL (2.5-4.9); TOTAL PROTEIN, SERUM 5.9 g/dL (6.4-8.2); UREA NITROGEN, BLOOD 37 mg/dL (7-18)
--- NOTE | 2022-02-14 08:18 | NUR ---
Dr. Tolliver advised to not give Valium to patient. Will endorse information.
[2022-02-14] MEDS: ASPIRIN 81 MG TAB.CHEW PO SCH (08:26)
[2022-02-14] MEDS: FLUOXETINE HCL 20 MG CAPSULE PO SCH (08:26)
[2022-02-14] MEDS ORDERED: Medication Not On Formulary EA (Atorvastatin Calcium (Lipitor) 1 TAB) PO SCH (09:00)
[2022-02-14] MEDS ORDERED: DIAZEPAM 10 MG TABLET PO SCH ×2 (09:00)
[2022-02-14] MEDS: TRAMADOL HCL 50 MG TABLET PO PRN (09:53)
[2022-02-14] MEDS: METRONIDAZOLE 500 MG/NS 100ML 500 MG in PREMIXED 1 EACH IV SCH ×2 (09:54→17:03)
[2022-02-14] MEDS: MORPHINE SULFATE 2 MG/1 ML DISP.SYRIN IV PRN ×3 (11:10→20:50)
--- NOTE | 2022-02-14 11:19 | NUR ---
Patient having paracentesis performed at bedside.
[2022-02-14 16:15] VITALS: BP 137/47
--- NOTE | 2022-02-14 18:45 | NUR ---
Patient received care well throughout shift. Pain managed through medicinal means. Patient had paracentesis performed with 5000cc total removed during procedure. Samples sent to lab for cell count, cytology, albumin, and grab stain and culture. Patient currently resting in bed comfortably with no complaints of pain at the moment. Bed left in lowest position with call light within reach. Comfort measures provided. Will endorse information to PM nurse.
[2022-02-14 20:00] VITALS: BP 128/50
[2022-02-14] MEDS: levoFLOXacin 250MG /D5W 50 ML IV SCH (20:50)
[2022-02-15] MEDS: METRONIDAZOLE 500 MG/NS 100ML 500 MG in PREMIXED 1 EACH IV SCH ×3 (01:47→17:43)
[2022-02-15] MEDS: TRAMADOL HCL 50 MG TABLET PO PRN ×2 (01:51→20:43)
[2022-02-15 04:00] VITALS: BP 113/52
[2022-02-15] MEDS: MORPHINE SULFATE 2 MG/1 ML DISP.SYRIN IV PRN ×2 (06:03→10:35)
[2022-02-15 06:36] VITALS: BP 115/53
--- NOTE | 2022-02-15 08:00 | NUR ---
Awake, alert, oriented x 3, forgetful at times. IVF infusing. Clear liquid diet maintained.
[2022-02-15] MEDS: ASPIRIN 81 MG TAB.CHEW PO SCH (09:15)
[2022-02-15] MEDS: FLUOXETINE HCL 20 MG CAPSULE PO SCH (09:15)
[2022-02-15] MEDS: METOPROLOL TARTRATE 50 MG TABLET PO SCH ×2 (09:22→20:43)
[2022-02-15 10:26] LABS: ALANINE AMINOTRANSFERASE 10 U/L (16-63); ALKALINE PHOSPHATASE 56 U/L (50-136); ASPARTATE AMINOTRANSFERASE 13 U/L (15-37); BILIRUBIN,TOTAL 0.5 mg/dL (0.2-1.0); CARBON DIOXIDE 24 mmol/L (21-32); CHLORIDE 100 mmol/L (98-107); CREATININE 1.5 mg/dL (0.6-1.3); GLUCOSE 242 mg/dL (74-106); POTASSIUM 3.2 mmol/L (3.5-5.1); TOTAL PROTEIN, SERUM 5.2 g/dL (6.4-8.2); UREA NITROGEN, BLOOD 30 mg/dL (7-18)
--- NOTE | 2022-02-15 10:30 | NUR ---
Reports of abdominal pain. Morphine 2 mg given with relief
[2022-02-15] MEDS ORDERED: POTASSIUM CHLORIDE 20 MEQ POWDER PACKET PO ONE (10:45)
[2022-02-15] MEDS: POTASSIUM CHLORIDE 50 ML IV SCH ×2 (11:16→12:34)
[2022-02-15 12:00] VITALS: BP 134/59
[2022-02-15] MEDS: IV D5 1/2 NS 1000 ML 1,000 ML IV PRN (12:34)
[2022-02-15] MEDS: ONDANSETRON 4 MG/2 ML VIAL IV PRN (12:44)
--- NOTE | 2022-02-15 12:45 | NUR ---
Nauseated. Zofran IV given with relief
[2022-02-15 16:49] VITALS: BP 117/40
[2022-02-15] MEDS: IV NS 1000 ML 1,000 ML IV PRN (17:43)
[2022-02-15 18:39] LABS: *BILIRUBIN,URIN 1+ (NEGATIVE); *BLOOD, URINE 3+ (NEGATIVE); *CLARITY,URINE CLOUDY (CLEAR); *KETONES,URINE TRACE (NEGATIVE); *UROBILINOGEN,URINE 0.2 E.U./dl (NORMAL); LEUKOCYTE ESTERASE ,URINE 1+ (NEGATIVE); NITRITE, URINE NEGATIVE (NEGATIVE); PH,URINE 5.5 (5.0-8.0); UGLUCOSE NEGATIVE (NEGATIVE)
[2022-02-15 18:43] LABS: *CREATININE,URINE 140.1 mg/dL (30-125)
[2022-02-15 18:47] LABS: *COLOR,URINE ORANGE (YELLOW)
[2022-02-15 20:28] VITALS: BP 109/53
[2022-02-15] MEDS: levoFLOXacin 250MG /D5W 50 ML IV SCH (20:42)
[2022-02-15] MEDS: ATORVASTATIN 40 MG TABLET PO SCH (20:43)
[2022-02-15] MEDS: TEMAZEPAM 15 MG CAPSULE PO PRN (22:15)
[2022-02-16 00:38] LABS: BACTERIA,URINE NONE SEEN /HPF (NONE SEEN); RBC,URINE TNTC /HPF (0-3); SQUAMOUS EPITHELIAL CELL,UR FEW /HPF (NONE SEEN)
[2022-02-16] MEDS: METRONIDAZOLE 500 MG/NS 100ML 500 MG in PREMIXED 1 EACH IV SCH ×3 (01:05→17:35)
[2022-02-16 04:38] VITALS: BP 126/53
--- NOTE | 2022-02-16 05:31 | NUR ---
Pt slept intermittently. IV site intact. Pt removed ryan intact. Denies pain and no drainage noted. Pt able to void well in diaper. Tolerated all medications. Safety maintained. Will endorse to day shift.
[2022-02-16] MEDS: IV NS 1000 ML 1,000 ML IV PRN ×3 (06:01→21:25)
[2022-02-16 07:22] LABS: HEMATOCRIT 40.9 % (36.7-47.1); MEAN CORPUSCULAR HEMOGLOBIN 28.5 uug (23.8-33.4); MEAN CORPUSCULAR VOLUME 85.1 fL (73.0-96.2); PLATELET COUNT (AUTO) 289 K/uL (152-348)
[2022-02-16 07:31] LABS: CREATININE 1.3 mg/dL (0.6-1.3); MAGNESIUM 1.8 mg/dL (1.8-2.4); PHOSPHOROUS 2.6 mg/dL (2.5-4.9)
[2022-02-16] MEDS: ONDANSETRON 4 MG/2 ML VIAL IV PRN ×2 (07:51→13:51)
[2022-02-16] MEDS: METOPROLOL TARTRATE 50 MG TABLET PO SCH ×2 (08:52→20:58)
[2022-02-16] MEDS: ASPIRIN 81 MG TAB.CHEW PO SCH (08:52)
[2022-02-16] MEDS: FLUOXETINE HCL 20 MG CAPSULE PO SCH (08:53)
[2022-02-16] MEDS: levoFLOXacin 500 MG/D5W 500 MG in PREMIXED 1 EACH IV SCH (09:09)
[2022-02-16 12:03] VITALS: BP 106/64
[2022-02-16] MEDS: MORPHINE SULFATE 2 MG/1 ML DISP.SYRIN IV PRN ×2 (12:52→16:50)
[2022-02-16 20:00] VITALS: BP 125/55
--- NOTE | 2022-02-16 20:30 | NUR ---
Pt comfortable in bed. No complaints of nausea or pain. IV intact and patent. Call light within reach. All needs attended. Left bed in lowest position. Will continue to monitor.
[2022-02-16] MEDS ORDERED: ATORVASTATIN 20 MG TABLET PO SCH (21:00)
[2022-02-17] MEDS: METRONIDAZOLE 500 MG/NS 100ML 500 MG in PREMIXED 1 EACH IV SCH ×3 (01:03→17:35)
[2022-02-17] MEDS: ONDANSETRON 4 MG/2 ML VIAL IV PRN ×2 (03:47→12:13)
--- NOTE | 2022-02-17 03:50 | NUR ---
Pt noted to have dry heaving. No vomiting. Zofran given. Will reassess.
[2022-02-17 04:00] VITALS: BP 133/64
[2022-02-17] MEDS: MORPHINE SULFATE 2 MG/1 ML DISP.SYRIN IV PRN ×3 (05:32→20:30)
--- NOTE | 2022-02-17 05:44 | NUR ---
Pt complained of abdominal pain. Morphine given as ordered. All needs attended. Will reassess.
[2022-02-17 07:02] LABS: HEMATOCRIT 40.9 % (36.7-47.1); MEAN CORPUSCULAR HEMOGLOBIN 28.9 uug (23.8-33.4); MEAN CORPUSCULAR VOLUME 85.2 fL (73.0-96.2); PLATELET COUNT (AUTO) 361 K/uL (152-348)
[2022-02-17 07:32] LABS: THYROID STIMULATING HORMONE 2.073 mIU/mL (0.358-3.740)
[2022-02-17 07:39] LABS: ALANINE AMINOTRANSFERASE 10 U/L (16-63); ALKALINE PHOSPHATASE 56 U/L (50-136); ASPARTATE AMINOTRANSFERASE 17 U/L (15-37); BILIRUBIN,TOTAL 0.6 mg/dL (0.2-1.0); CARBON DIOXIDE 20 mmol/L (21-32); CHLORIDE 103 mmol/L (98-107); CHOLESTEROL 82 mg/dL (<200); CREATININE 1.4 mg/dL (0.6-1.3); GLUCOSE 145 mg/dL (74-106); HDL CHOLESTEROL 30 mg/dL (40-60); MAGNESIUM 1.8 mg/dL (1.8-2.4); PHOSPHOROUS 3.2 mg/dL (2.5-4.9); POTASSIUM 4.4 mmol/L (3.5-5.1); TOTAL PROTEIN, SERUM 5.3 g/dL (6.4-8.2); TRIGLYCERIDES 83 MG/DL (30-150); UREA NITROGEN, BLOOD 32 mg/dL (7-18)
[2022-02-17] MEDS ORDERED: METRONIDAZOLE 500 MG TABLET PO SCH (07:45)
[2022-02-17] MEDS: ASPIRIN 81 MG TAB.CHEW PO SCH (09:05)
[2022-02-17] MEDS: FLUOXETINE HCL 20 MG CAPSULE PO SCH (09:05)
[2022-02-17] MEDS: METOPROLOL TARTRATE 50 MG TABLET PO SCH ×2 (09:06→20:26)
[2022-02-17] MEDS: levoFLOXacin 500 MG/D5W 500 MG in PREMIXED 1 EACH IV SCH (09:11)
--- NOTE | 2022-02-17 10:00 | NUR ---
NEW ORDER NOTED FROM DR IRIZARRY WITH NEW ORDERS PATIENT IS FOR PARACENTHESIS TODAY WILL PREP.
[2022-02-17 11:33] VITALS: BP 124/76
--- NOTE | 2022-02-17 12:14 | NUR ---
MEDICATED FOR ABDOMINAL PAIN AND NAUSEA WITH MORPHINE AND ZOFRAN ORDERED WILL OBSERVE.
[2022-02-17] MEDS: IV NS 1000 ML 1,000 ML IV PRN (14:33)
--- NOTE | 2022-02-17 15:30 | NUR ---
RADIOLOGIST AND MARKETING AMBASSADOR HERE AND PERFORMED PARACENTESIS ORDERED AND 3 LITERS PALE YELLOW COLOR REMOVED PATIENT TOLERATED PROCEDURE WELL
[2022-02-17 16:14] VITALS: BP 105/43
--- NOTE | 2022-02-17 17:42 | NUR ---
REMAIN ON CLEAR LIQUIDS DIET AND UIV ATB ORDERED WITH NO ADVERSE OR ALLERGIC REACTIONS AT THIS TIME PAIN MEDICATIONS IS EFFECTIVE ORDERED WILL CONTINUE TO OBSERVE.
[2022-02-17] MEDS ORDERED: ALBUMIN HUMAN 25% 100 ML IV ONE (20:00)
[2022-02-17 20:06] VITALS: BP 100/47
[2022-02-17] MEDS: ATORVASTATIN 10 MG TABLET PO SCH (20:21)
[2022-02-18] MEDS: METRONIDAZOLE 500 MG/NS 100ML 500 MG in PREMIXED 1 EACH IV SCH ×3 (01:25→17:11)
[2022-02-18] MEDS: ONDANSETRON 4 MG/2 ML VIAL IV PRN ×4 (01:59→18:51)
[2022-02-18] MEDS: MORPHINE SULFATE 2 MG/1 ML DISP.SYRIN IV PRN ×4 (02:30→18:51)
[2022-02-18 04:00] VITALS: BP 123/45
--- NOTE | 2022-02-18 05:45 | NUR ---
Patient alert oriented, no sob no chest pain, abdomen still large/distended, complain of abdominal and back pain, and nausea, medicated with Morphine and Zofran as ordered, cont on abx with no adverse reaction noted, kept clean dry and comfortable, call light within reach.
[2022-02-18 06:30] LABS: HEMATOCRIT 38.3 % (36.7-47.1); MEAN CORPUSCULAR HEMOGLOBIN 28.7 uug (23.8-33.4); MEAN CORPUSCULAR VOLUME 84.3 fL (73.0-96.2); PLATELET COUNT (AUTO) 265 K/uL (152-348)
--- NOTE | 2022-02-18 06:51 | NUR ---
TEXT DR BROOKE FOR MRI APPROVAL.
[2022-02-18 06:53] LABS: CARBON DIOXIDE 25 mmol/L (21-32); CHLORIDE 105 mmol/L (98-107); CREATININE 1.4 mg/dL (0.6-1.3); GLUCOSE 136 mg/dL (74-106); MAGNESIUM 1.7 mg/dL (1.8-2.4); PHOSPHOROUS 2.8 mg/dL (2.5-4.9); UREA NITROGEN, BLOOD 31 mg/dL (7-18)
[2022-02-18] MEDS: METOPROLOL TARTRATE 50 MG TABLET PO SCH ×2 (08:43→20:48)
[2022-02-18] MEDS: ASPIRIN 81 MG TAB.CHEW PO SCH (08:43)
[2022-02-18] MEDS: FLUOXETINE HCL 20 MG CAPSULE PO SCH (08:44)
[2022-02-18] MEDS: SPIRONOLACTONE 25 MG TABLET PO SCH (08:44)
[2022-02-18] MEDS: levoFLOXacin 250MG /D5W 50 ML IV SCH (08:46)
[2022-02-18] MEDS: MAGNESIUM SULFATE/D5W 100 ML IV SCH ×2 (12:45→13:24)
--- NOTE | 2022-02-18 12:45 | NUR ---
MID LINE INSERTED TO HIS LEFT UPPER ARM ORDERED AND TOLERATED WELL.
--- NOTE | 2022-02-18 14:00 | NUR ---
PICKED UP BY [facility] FOR MRI ORDERED
--- NOTE | 2022-02-18 15:30 | NUR ---
RETURNED FROM MRI AWAITING FOR RESULTS.
[2022-02-18] MEDS ORDERED: GADOTERATE MEGLUMINE 10 MMOL/20 ML VIAL IV ONE (15:49)
[2022-02-18 15:56] VITALS: BP 114/45
--- NOTE | 2022-02-18 18:00 | NUR ---
D/C PLANNING PATIENTS SON ISAAC IS HERE BAND STATED THAT HE SPOKE WITH DR VELASCO AND SEEKING FOR A PENITENTIARY CARE FOR HIS FATHER. MAGNESSIUM COMPLETED ORDERED.NO ADVERSE OR ALLERGIC REACTIONS FROM ATB ORDERED WILL CONTINUE TO OBSERVE ABD STILL ENLARGED.
--- NOTE | 2022-02-18 19:00 | NUR ---
RECEIVED PATIENT IN BED. AAOX3-4. ABLE TO MAKE NEEDS KNOWN. IV ACCESS PATENT AND INTACT. PATIENT DENIES SOB, CHEST PAIN OR DIZZINESS AT THIS TIME. SAFETY PRECAUTIONS IN PLACE. CALL LIGHT WITHIN REACH.
[2022-02-18 20:39] VITALS: BP 115/57
[2022-02-18] MEDS: TEMAZEPAM 15 MG CAPSULE PO PRN (20:48)
[2022-02-18] MEDS: ATORVASTATIN 10 MG TABLET PO SCH (20:48)
[2022-02-19] MEDS: METRONIDAZOLE 500 MG/NS 100ML 500 MG in PREMIXED 1 EACH IV SCH ×2 (01:10→10:41)
[2022-02-19] MEDS: MORPHINE SULFATE 2 MG/1 ML DISP.SYRIN IV PRN ×3 (02:17→12:55)
[2022-02-19] MEDS: ONDANSETRON 4 MG/2 ML VIAL IV PRN ×2 (02:17→08:37)
--- NOTE | 2022-02-19 02:20 | NUR ---
PATIENT COMPLAINED OF HAVING NAUSEA, NO VOMITING NOTED AND PAIN. PRN ZOFRAN AND MORPHINE GIVEN.
[2022-02-19 04:40] VITALS: BP 118/46
[2022-02-19 07:09] LABS: HEMATOCRIT 42.9 % (36.7-47.1); MEAN CORPUSCULAR HEMOGLOBIN 29.3 uug (23.8-33.4); MEAN CORPUSCULAR VOLUME 85.1 fL (73.0-96.2); PLATELET COUNT (AUTO) 327 K/uL (152-348)
[2022-02-19 07:28] LABS: CARBON DIOXIDE 21 mmol/L (21-32); CHLORIDE 104 mmol/L (98-107); CREATININE 1.5 mg/dL (0.6-1.3); GLUCOSE 141 mg/dL (74-106); POTASSIUM 4.2 mmol/L (3.5-5.1); UREA NITROGEN, BLOOD 32 mg/dL (7-18)
[2022-02-19] MEDS ORDERED: IOHEXOL 300MG/ML 100 ML INFUS..BTL ONE (08:03)
[2022-02-19] MEDS ORDERED: IV NORMAL SALINE 250 ML IV ONE (08:03)
[2022-02-19] MEDS ORDERED: SWABABLE VALVE TRANSFER SET EA MC ONE (08:03)
[2022-02-19] MEDS: levoFLOXacin 250MG /D5W 50 ML IV SCH (08:38)
--- NOTE | 2022-02-19 09:00 | NUR ---
Patient is AAOx4, c/o pain to abdomen and nausea. ABD is distended. Morphine and Zofran IV provided and helpful. Patient to have CT this morning, he has been NPO since Midnight. Patient denies any chest pain, No SOB noted. All needs attended by staff. Call light within reach.
[2022-02-19] MEDS: SPIRONOLACTONE 25 MG TABLET PO SCH (09:38)
[2022-02-19] MEDS: METOPROLOL TARTRATE 50 MG TABLET PO SCH (09:38)
[2022-02-19] MEDS: ASPIRIN 81 MG TAB.CHEW PO SCH (09:38)
[2022-02-19] MEDS: FLUOXETINE HCL 20 MG CAPSULE PO SCH (09:38)
[2022-02-19 11:19] VITALS: BP 105/42
[2022-02-19] MEDS ORDERED: LEVO500T90 PO (14:09)
[2022-02-19] MEDS ORDERED: SPIR25TA PO (14:09)
[2022-02-19] MEDS ORDERED: METR500T PO (14:09)
--- NOTE | 2022-02-19 14:35 | NUR ---
Patient discharged to [facility], Report given to RN. Patient son at bedside. Discharge instructions and medications discussed with patient and son. Per patient request, son signed discharge paperwork. IV removed from right wrist and left upper arm midline removed. Patient transported via ambulance. DOREEN Sosa aware of CT results. Per Dr. Vera patient is able to have paracentesis and oncology work up outpatient. Son and patient agree.
== END 2022-02-19 16:03 | DRG 871 ==
LOC: ER 16:05 → TELE3 22:59 → MEDSURG3 02-15 12:45
PROVIDERS: ADMIT Internal Medicine; ATTEND Nurse Practitioner Acute Care
PROC: 0W9G3ZZ Drainage of Peritoneal Cavity, Percutaneous Approach (ICD-10-PCS; principal; 2022-02-14)
PROC: 0W9G3ZZ Drainage of Peritoneal Cavity, Percutaneous Approach (ICD-10-PCS; 2022-02-17)
PROC: 05H633Z Insertion of Infusion Device into Left Subclavian Vein, Percutaneous Approach (ICD-10-PCS; 2022-02-18)
PROC: B547ZZA Ultrasonography of Left Subclavian Vein, Guidance (ICD-10-PCS; 2022-02-18)
DX: A41.9 Sepsis, unspecified organism (principal); E43 Unspecified severe protein-calorie malnutrition; N17.0 Acute kidney failure with tubular necrosis; G93.41 Metabolic encephalopathy; K76.7 Hepatorenal syndrome; E87.1 Hypo-osmolality and hyponatremia; I42.2 Other hypertrophic cardiomyopathy; N39.0 Urinary tract infection, site not specified; K76.6 Portal hypertension; K86.1 Other chronic pancreatitis; K86.2 Cyst of pancreas; K57.32 Diverticulitis of large intestine without perforation or abscess without bleeding; I82.891 Chronic embolism and thrombosis of other specified veins; C78.6 Secondary malignant neoplasm of retroperitoneum and peritoneum; C25.9 Malignant neoplasm of pancreas, unspecified; R18.0 Malignant ascites; J90 Pleural effusion, not elsewhere classified; E87.5 Hyperkalemia; E11.9 Type 2 diabetes mellitus without complications; E86.0 Dehydration; E83.19 Other disorders of iron metabolism; E88.09 Other disorders of plasma-protein metabolism, not elsewhere classified; Z95.2 Presence of prosthetic heart valve; I25.10 Atherosclerotic heart disease of native coronary artery without angina pectoris; I25.2 Old myocardial infarction; K74.60 Unspecified cirrhosis of liver; I71.4 Abdominal aortic aneurysm, without rupture; Z68.23 Body mass index [BMI] 23.0-23.9, adult; I11.9 Hypertensive heart disease without heart failure; Z87.441 Personal history of nephrotic syndrome; Z20.822 Contact with and (suspected) exposure to COVID-19
CPT/HCPCS: 36415; 70450; 71045; 71260; 76705; 76770; 83605; 83690; 83735; 83986; 84100; 84300; 84443; 84484; 85025; 85610; 85730; 86301; 87040; 87070; 87086; 87205; 93005; 97161; A4663; A9575; G0378; J0610; J1170; J1815; J1956; J2270; J2405; J2543; J3475; J3480; J3490; J7040; J7070; P9047; Q9967